=== PATIENT | female | born 1975 ===

== ENCOUNTER 2018-11-08 14:28 | Outpatient (CLI) | payer OTHER | END 2018-11-08 14:29 | disposition home or self-care (01) | LOC: C.USIC 14:28 | DX: R10.2 Pelvic and perineal pain (principal) ==

== ENCOUNTER 2018-11-24 21:10 | Emergency (ER) | payer OTHER ==
[2018-11-24 21:10] VITALS: BMI 24.7
[2018-11-24 21:25] VITALS: BP 112/75; PULSE 81; RESP 18; TEMP 98.6; O2SAT 98
--- NOTE | 2018-11-24 22:37 | C.PDOC ---
History Of Present Illness 43 y/o female presents to the ED with complaints of URI symptoms for the past 4 days. She reports nasal congestion, headache behind her eyes, earache, and sore throat since Wednesday. Patient has tried taking cough syrup with minimal improvement. Otherwise she denies nausea, vomiting, fever, chills, neck pain, SOB, or abdominal pain. Time Seen by Provider: 11/24/18 21:44 Chief Complaint (Nursing): ENT Problem History Per: Patient History/Exam Limitations: no limitations Onset/Duration Of Symptoms: Days (4) Current Symptoms Are (Timing): Still Present Location Of Pain: Ear(s), Throat Associated Symptoms: Sore Throat, Cough, Nasal Congestion Past Medical History Reviewed: Historical Data, Nursing Documentation, Vital Signs Vital Signs: Last Vital Signs Temp 98.6 F 11/24/18 21:20 Pulse 81 11/24/18 21:20 Resp 18 11/24/18 21:20 BP 112/75 11/24/18 21:20 Pulse Ox 98 11/24/18 21:20 - Medical History PMH: No Chronic Diseases Surgical History: No Surg Hx Family History: States: Unknown Family Hx - Social History Hx Tobacco Use: No Hx Alcohol Use: No Hx Substance Use: No - Immunization History Hx Tetanus Toxoid Vaccination: No Hx Influenza Vaccination: No Hx Pneumococcal Vaccination: No Review Of Systems Constitutional: Negative for: Fever, Chills, Weakness Eyes: Negative for: Vision Change ENT: Positive for: Ear Pain, Nose Discharge, Nose Congestion, Throat Pain Cardiovascular: Negative for: Chest Pain Respiratory: Positive for: Cough. Negative for: Shortness of Breath, Wheezing Gastrointestinal: Negative for: Nausea, Vomiting, Abdominal Pain, Diarrhea Neurological: Negative for: Weakness, Dizziness Physical Exam - Physical Exam Appears: Non-toxic, No Acute Distress Skin: Normal Color, Warm, No Rash Head: Atraumatic, Normacephalic Eye(s): bilateral: Normal Inspection (no scleral icterus), PERRL, EOMI Ear(s): Bilateral: Normal (no drainage or TM erythema) Nose: Discharge (Enlarged turbinates bilaterally with clear mucous discharge) Oral Mucosa: Moist Throat: Normal (no injection or swelling), No Exudate Neck: Normal ROM, Supple Chest: Symmetrical Cardiovascular: Rhythm Regular, No Murmur Respiratory: Normal Breath Sounds, No Rales, No Rhonchi, No Wheezing Gastrointestinal/Abdominal: Soft, No Tenderness, No Distention Back: Other (Ambulatory with steady upright gait) Extremity: Bilateral: Atraumatic, Normal ROM Pulses: Left Radial: Normal, Right Radial: Normal Neurological/Psych: Oriented x3, Normal Cranial Nerves ED Course And Treatment O2 Sat by Pulse Oximetry: 98 (RA) Pulse Ox Interpretation: Normal Medical Decision Making Medical Decision Making: Impression: URI vs flu Plan: - flu swab pending Progress: Flu negative. Patient counseled regarding diagnosis of viral URI. Advised to continue symptomatic treatment and follow up with PMD. Disposition Counseled Patient/Family Regarding: Diagnosis, Need For Followup, Rx Given - Disposition Referrals: Non [facility] Provider, [Primary Care Provider] - Disposition: HOME/ ROUTINE Disposition Time: 22:36 Condition: STABLE Prescriptions: Cetirizine HCl/Pseudoephedrine [Zyrtec-D Tablet] 1 each PO DAILY #14 tab.er.12h Ibuprofen [Motrin Tab] 600 mg PO TID #21 tab Instructions: Viral Upper Respiratory Infection, Adult (DC) Forms: Gen Discharge Inst German, [employer] [place] (German), Work Excuse Print Language: UPPER SORBIAN - POA Present On Arrival: None - Clinical Impression Clinical Impression: Upper respiratory infection - PA / [employer] / Resident Statement MD/DO has reviewed & agrees with the documentation as recorded. - Scribe Statement The provider has reviewed the documentation as recorded by the Scribyfn Sweeney All medical record entries made by the Scribe were at my direction and personally dictated by me. I have reviewed the chart and agree that the record accurately reflects my personal performance of the history, physical exam, medical decision making, and the department course for this patient. I have also personally directed, reviewed, and agree with the discharge instructions and di sposition.
== END 2018-11-24 22:44 | disposition home or self-care (01) ==
LOC: C.ER 21:10 → SUPCPDRO 21:10 → C.ER 22:44
DX: J06.9 Acute upper respiratory infection, unspecified (principal)

== ENCOUNTER 2019-01-25 13:37 | Outpatient (CLI) | payer OTHER | END 2019-01-25 13:38 | disposition home or self-care (01) | LOC: C.USIC 13:37 ==

== ENCOUNTER 2019-02-24 13:46 | Outpatient (CLI) | payer OTHER | END 2019-02-24 13:47 | disposition home or self-care (01) | LOC: C.CTH 13:46 | DX: R10.2 Pelvic and perineal pain (principal) ==